=== PATIENT | male | born 1960 | race Caucasian/White ===

== ENCOUNTER → 2023-01-24 | Outpatient (CLI) | payer OTHER ==
[2023-01-24 10:43] VITALS: BP 109/94
--- NOTE | 2023-01-24 16:26 | Cardiology Stress Test Report ---
Stress Test Report Date of Procedure/Referring: Date of Procedure: Jan 24, 2023 PCP Sebastian Wing DO Admitting Physician Admitting Physician: Attending Physician: Sebastian Wing DO Indications: 4 Baseline Heart Rate: 79 Baseline Blood Pressure: Blood Pressure Systolic: 109 Blood Pressure Diastolic: 94 Baseline EKG: Baseline EKG: NSR Summary/Conclusion: Summary: In summary, the patient started exercising with a baseline heart rate, blood pressure and EKG mentioned above Patient was able to exercise for a total of 4 minutes on Jovanny protocol, METs 5.8 Maximum heart rate 135 Maximum blood pressure 196/119 Stress EKG, Minimal nondiagnostic changes Recovery EKG , Return to baseline Conclusion: 1. Good exercise tolerance for a total of 4 minutes on Jovanny protocol, 5.8 METs, achieving 86 percent of maximum expected heart rate 2. Minimal nondiagnostic EKG changes with exercise returned to baseline during recovery 3. No arrhythmia was noted TRACY GREWAL MD Jan 24, 2023 16:26
== END ==
LOC: CARD 10:22
PROVIDERS: ATTEND Pediatrics
DX: I20.8 Other forms of angina pectoris (principal)
CPT/HCPCS: 93017